=== PATIENT | male | born 1980 | race Two or more races ===

== ENCOUNTER 2019-08-11 14:00 | Emergency (ER) | payer MEDICAID ==
[~2019-08-11] VITALS: Ht 175.3 cm; Wt 81.6 kg
--- NOTE | 2019-08-11 14:00 | NUR ---
BIB [id number] AND [employer] OFF[employer],GIRLFRIEND CALLED 911 SAYING THAT HE WAS CUT-TING HIS WRIST,HESITATION DUMONT IN L WRIST, PT TO BED 12, PT ON MONITOR, VSS, NAD NOTED, -SOB, PENDING MD BRIGHT
[2019-08-11 15:13] LABS: BASOPHILS % (AUTO) 0.7 % (0.0-2.0); EOSINOPHILS % (AUTO) 3.3 % (0.0-6.0); HEMATOCRIT 48 % (39-51); HEMOGLOBIN 15.8 g/dL (13.5-17.5); LYMPHOCYTES # (AUTO) 1.3 /CMM (0.8-4.8); LYMPHOCYTES % (AUTO) 21.2 % (20.0-44.0); MEAN CORPUSCULAR HGB CONC 33 g/dl (31.0-36.0); MEAN CORPUSCULAR VOLUME 105 fL (80-96); MONOCYTES # (AUTO) 0.7 /CMM (0.1-1.30); MONOCYTES % (AUTO) 10.8 % (2.0-12.0); NEUTROPHILS # (AUTO) 3.9 /CMM (1.8-8.9); PLATELET COUNT (AUTO) 238 /CMM (150-450); RED BLOOD CELL COUNT(AUTO) 4.57 MIL/uL (4.5-6.0); WHITE BLOOD COUNT (AUTO) 6.1 K/uL (4.3-11.0)
[2019-08-11 15:15] LABS: APPEARANCE,URINE Clear (CLEAR); BILIRUBIN,URINE Negative (NEGATIVE); BLOOD, URINE Negative Ery/uL (NEGATIVE); COLOR,URINE Yellow (YELLOW); KETONES,URINE Negative (NEGATIVE); LEUKOCYTE ESTERASE ,URINE Negative (NEGATIVE); NITRITE, URINE Negative (NEGATIVE); PROTEIN,URINE Negative (NEGATIVE); UGLUCOSE Negative (NEGATIVE); UROBILINOGEN,URINE 0.2 EU/dL (0.2)
[2019-08-11 15:30] LABS: CALCIUM, SERUM 8.5 mg/dL (8.5-10.1); CREATININE 0.7 mg/dL (0.6-1.3); POTASSIUM 3.9 mmol/L (3.5-5.1)
[2019-08-11 15:33] LABS: ALBUMIN 3.4 g/dL (3.4-5.0); BILIRUBIN,DIRECT 0.2 mg/dL (0.0-0.2); BILIRUBIN,TOTAL 0.6 mg/dL (0.2-1.0); TOTAL PROTEIN, SERUM 7.1 g/dL (6.4-8.2)
--- NOTE | 2019-08-11 18:00 | NUR ---
ETOH RE-DRAW DONE, PT STILL ABOVE <100 AT THIS TIME, TESTER ELECTRONIC SCALE WILL SEE PATIENT ONCE PT'S ETOH LEVEL IS DOWN
--- NOTE | 2019-08-11 21:06 | NUR ---
Patient is resting comfortably in bed with eyes closed. Easily aroused. VSS
--- NOTE | 2019-08-11 22:20 | NUR ---
Patient discharged to home in stable condition. Written and verbal after care instructions given. Patient verbalizes understanding of instruction. IV removed. Catheter intact and site benign. Pressure and 4x4 applied to site. No bleeding noted.
--- NOTE | 2019-08-11 22:44 | NUR ---
PER KARYNA RIOS, SHE WANTS HIM TO BE SEEN BY POULTRY PINNER
--- NOTE | 2019-08-11 22:52 | NUR ---
CALLED FINANCIAL REPORTING ADVISOR, PER MARIAH SIMMONS, PT DOES NOT MEET CRITERIA TO BE SEEN FOR CRISIS PATIENT IS CLINCALLY SOBER AND DENIES ANY SUICIDAL IDEATION AND HOMICIDAL IDEATION, LALO WALSH AWARE, PT IS CLEARED FOR DISCHARGE, GIVEN MENTAL HEALTH RESOURCES, PATIENT VERBALIZES UNDERSTANDING
[2019-08-11 22:53] VITALS: BP 119/68
== END 2019-08-11 22:54 | disposition home or self-care (01) ==
LOC: ER 14:06
DX: R45.851 Suicidal ideations (principal); F10.129 Alcohol abuse with intoxication, unspecified; Y90.5 Blood alcohol level of 100-119 mg/100 ml
CPT/HCPCS: 36415; 80048; 80076; 80305; 80307 ×3; 80329; 81001; 85025; 99284; G0480; 81000-TC